=== PATIENT | male | born 1975 | race Caucasian/White ===

== ENCOUNTER 2016-06-12 07:17 | Emergency (ER) | payer BC ==
[2016-06-12] MEDS ORDERED: METHYLPRED SOD SUCC 125 MG/2 ML VIAL ONE (07:51)
[2016-06-12] MEDS ORDERED: DUONEB INH ONE (08:00)
== END 2016-06-12 08:49 | disposition home or self-care (01) ==
LOC: ER 07:17
DX: J20.9 Acute bronchitis, unspecified (principal)
CPT/HCPCS: 71020; 87804; 87880; 94640; 96372